=== PATIENT | female | born 1985 | race Caucasian/White ===

== ENCOUNTER 2016-12-01 21:38 | Emergency (ER) | payer BC ==
[2016-12-01 21:53] VITALS: BP 109/67
[2016-12-01] MEDS ORDERED: Phenazopyridine 95 MG Tab PO ONE (22:15)
[2016-12-01] MEDS ORDERED: Sulfamethoxazole/Trimethoprim 800-160 MG Tab PO ONE (22:15)
--- NOTE | 2016-12-01 22:21 | EDM.PDOC ---
ED HPI GENERAL MEDICAL PROBLEM - General Chief Complaint: Genitourinary Problem Stated Complaint: UTI [id number] Time Seen by Provider: 12/01/16 22:16 Source of Information: Reports: Patient History Limitations: Reports: No Limitations - History of Present Illness INITIAL COMMENTS - FREE TEXT/NARRATIVE: worsening of dysuria, urgency, denies back pain, did have fever few days ago. 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 [No Known Home Meds] 08/27/15 [History] Past Medical History - Past Health History Medical/Surgical History: Denies Medical/Surgical History - Past Surgical History HEENT Surgical History: Reports: Tonsillectomy GI Surgical History: Reports: Appendectomy, Colonoscopy, Other (See Below) Other GI Surgeries/Procedures: Exlap Female Surgical History: Reports: Other (See Below) Social & Family History - Family History Family Medical History: Noncontributory - Tobacco Use Smoking Status *Q: Never Smoker Second Hand Smoke Exposure: No - Caffeine Use Caffeine Use: Reports: Coffee, Soda - Alcohol Use Date of Last Drink: 11/10/16 - Recreational Drug Use Recreational Drug Use: No - Living Situation & Occupation Living situation: Reports: , with Spouse Occupation: Employed ED ROS GENERAL - Review of Systems Review Of Systems: ROS reveals no pertinent complaints other than HPI. ED EXAM, RENAL/ - Physical Exam Exam: See Below Exam Limited By: No Limitations General Appearance: Alert, WD/WN, Mild Distress, Other (discomfort) Ears: Hearing Grossly Normal Throat/Mouth: Normal Voice, No Airway Compromise Head: Atraumatic Neck: Non-Tender, Full Range of Motion Respiratory/Chest: No Respiratory Distress Cardiovascular: Regular Rate, Rhythm GI/Abdominal: Soft, Non-Tender Back Exam: No: CVA Tenderness (L), CVA Tenderness (R) Neurological: Alert, Oriented, Normal Cognition, Normal Gait, No Motor/Sensory Deficits Psychiatric: Normal Affect, Normal Mood Skin Exam: Warm, Dry Lymphatic: No Adenopathy Course - Vital Signs Last Recorded V/S: Last Vital Signs Temp 36.3 C 12/01/16 21:41 Pulse 96 12/01/16 21:41 Resp 14 12/01/16 21:41 BP 109/67 12/01/16 21:41 Pulse Ox 94 L 12/01/16 21:41 - Orders/Labs/Meds Orders: Active Orders 24 hr Category Date Time Status Phenazopyridine [Urinary Pain Relief] Med 12/01/16 22:15 Once 95 mg PO ONETIME ONE Sulfamethoxazole/Trimethoprim [Septra DS] Med 12/01/16 22:15 Once 1 tab PO ONETIME ONE Labs: Laboratory Tests 12/01/16 12/01/16 Range/Units 21:34 21:34 Urine Color Other (YELLOW) Urine Appearance Cloudy (CLEAR) Urine pH 7.0 (5.0-9.0) Ur Specific [place] >= 1.030 (1.005-1.030) Urine Protein >=300 H (NEGATIVE) Urine Glucose (UA) Negative (NEGATIVE) Urine Ketones 40 H (NEGATIVE) Urine Occult Blood Large H (NEGATIVE) Urine Nitrite Negative (NEGATIVE) Urine Bilirubin Negative (NEGATIVE) Urine Urobilinogen 0.2 (0.2-1.0) mg/dL Ur Leukocyte Esterase Small H (NEGATIVE) Urine RBC Semi-packed H /HPF Urine WBC 20-30 H (0-5/HPF) /HPF Ur Epithelial Cells Moderate H /HPF Urine Bacteria Moderate H (0-FEW/HPF) /HPF Urine Mucus Moderate H /LPF Urine HCG, Qual Negative - Re-Assessments/Exams Free Text/Narrative Re-Assessment/Exam: 12/01/16 22:19 results discussed with Pt. Departure - Departure Time of Disposition: 22:19 Disposition: Home, Self-Care 01 Condition: Good Clinical Impression: UTI, Urinary tract infectious disease - Discharge Information Instructions: Urinary Tract Infection, Adult, [id number] Forms: ED Department Discharge Additional Instructions: 1) drink lots of liquids 2) follow up at clinic or return if has fever and back pain rx given; bactrim DS bid x 20 pyridium 100mg tid prn x 12 - My Orders Last 24 Hours: My Active Orders 12/01/16 22:15 Phenazopyridine [Urinary Pain Relief] 95 mg PO ONETIME ONE Sulfamethoxazole/Trimethoprim [Septra DS] 1 tab PO ONETIME ONE - Assessment/Plan Last 24 Hours: My Active Orders 12/01/16 22:15 Phenazopyridine [Urinary Pain Relief] 95 mg PO ONETIME ONE Sulfamethoxazole/Trimethoprim [Septra DS] 1 tab PO ONETIME ONE
== END 2016-12-01 22:42 | disposition home or self-care (01) ==
LOC: DL.ED 21:38
DX: N39.0 Urinary tract infection, site not specified (principal); Z98.890 Other specified postprocedural states; Z90.49 Acquired absence of other specified parts of digestive tract
CPT/HCPCS: 81001; 81025; 99283; A9270

== ENCOUNTER 2016-12-03 21:54 | Emergency (ER) | payer BC ==
[2016-12-03] MEDS ORDERED: Sodium Chloride 0.9% 1,000 ML IV ONE (22:29)
[2016-12-03] MEDS ORDERED: Morphine 2 MG/ML Syringe IVPUSH ONE (22:29)
[2016-12-03] MEDS ORDERED: Ondansetron 4 MG/2 ML SDV IV ONE (22:29)
--- NOTE | 2016-12-03 22:32 | EDM.PDOC ---
ED HPI GENERAL MEDICAL PROBLEM - General Chief Complaint: Abdominal Pain Stated Complaint: POSSIBLE KIDNEY STONES Time Seen by Provider: 12/03/16 22:30 Source of Information: Reports: Patient History Limitations: Reports: No Limitations - History of Present Illness INITIAL COMMENTS - FREE TEXT/NARRATIVE: states was playing volley ball suddenly started low abd' pain with nausea. h/o ovarian cyste. been Dx with UTI few days ago. Lower Abdominal Pain Score (Numeric/FACES): 9 - Related Data Allergies Allergy/AdvReac Type Severity Reaction Status Date / Time No Known Allergies Allergy Verified 12/03/16 23:46 Home Meds: Home Meds Phenazopyridine HCl [Pyridium] 200 mg PO TID 12/03/16 [History] Sulfamethoxazole/Trimethoprim [Bactrim Ds Tablet] 1 tab PO BID 12/03/16 [History ] Past Medical History - Past Health History Medical/Surgical History: Denies Medical/Surgical History - Past Surgical History HEENT Surgical History: Reports: Tonsillectomy GI Surgical History: Reports: Appendectomy, Colonoscopy, Other (See Below) Other GI Surgeries/Procedures: Exlap Female Surgical History: Reports: Other (See Below) Social & Family History - Family History Family Medical History: Noncontributory - Tobacco Use Smoking Status *Q: Never Smoker Second Hand Smoke Exposure: No - Caffeine Use Caffeine Use: Reports: Coffee, Soda - Recreational Drug Use Recreational Drug Use: No - Living Situation & Occupation Living situation: Reports: , with Spouse Occupation: Employed ED ROS GENERAL - Review of Systems Review Of Systems: ROS reveals no pertinent complaints other than HPI. ED EXAM, GI/ABD - Physical Exam Exam: See Below Exam Limited By: No Limitations General Appearance: Alert, WD/WN, Mild Distress, Other (crying) Ears: Hearing Grossly Normal Throat/Mouth: Normal Voice, No Airway Compromise Head: Atraumatic Neck: Non-Tender, Full Range of Motion Respiratory/Chest: No Respiratory Distress Cardiovascular: Regular Rate, Rhythm GI/Abdominal: Hyperactive Bowel Sounds, Tenderness, Other (superpubic area). No : Guarding, Rebound, Rigidity Neurological: Alert, Oriented, Normal Cognition, Normal Gait, No Motor/Sensory Deficits Psychiatric: Tearful Skin Exam: Warm, Dry Lymphatic: No Adenopathy Course - Vital Signs Last Recorded V/S: Last Vital Signs Temp 36.4 C 12/03/16 22:26 Pulse 99 12/03/16 23:07 Resp 16 12/03/16 23:07 BP 105/68 12/03/16 23:07 Pulse Ox 86 L 12/03/16 23:07 - Orders/Labs/Meds Orders: Active Orders 24 hr Category Date Time Status Sodium Chloride 0.9% [Normal Saline] 1,000 ml Med 12/03/16 22:29 Active IV .BOLUS Medication Orders Sodium Chloride (Normal Saline) 1,000 mls @ 500 mls/hr IV .BOLUS ONE Stop: 12/04/16 00:28 Last Admin: 12/03/16 22:35 Dose: 500 mls/hr Labs: Laboratory Tests 12/03/16 12/03/16 12/03/16 Range/Units 22:13 22:13 22:21 WBC 9.6 (5.0-10.0) 10^3/uL RBC 4.36 (4.2-5.4) 10^6/uL Hgb 12.9 (12.0-16.0) g/dL Hct 38.5 (37.0-47.0) % MCV 88.3 (80-100) fL MCH 29.6 (27.0-34.0) pg MCHC 33.5 (33.0-35.0) g/dL Plt Count 191 (150-450) 10^3/uL Neut % (Auto) 53.0 (42.2-75.2) % Lymph % (Auto) 35.6 (20.5-50.1) % [place] % (Auto) 10.2 H (2-8) % Eos % (Auto) 1.0 (1.0-3.0) % Baso % (Auto) 0.2 (0.0-1.0) % Sodium (135-145) mmol/L Potassium (3.6-5.0) mmol/L Chloride (101-111) mmol/L Carbon Dioxide (21.0-31.0) mmol/L Anion Gap BUN (7-18) mg/dL Creatinine (0.6-1.3) mg/dL Est Cr Clr Drug Dosing mL/min Estimated GFR (MDRD) BUN/Creatinine Ratio Glucose (74-105) mg/dL Calcium (8.4-10.2) mg/dl Total Bilirubin (0.2-1.0) mg/dL AST (10-42) IU/L ALT (10-60) IU/L Alkaline Phosphatase (42-121) IU/L Total Protein (6.7-8.2) g/dl Albumin (3.2-5.5) g/dl Globulin Albumin/Globulin Ratio Urine Color [place] (YELLOW) Urine Appearance Cloudy (CLEAR) Urine pH 6.0 (5.0-9.0) Ur Specific [place] >= 1.030 (1.005-1.030) Urine Protein Trace H (NEGATIVE) Urine Glucose (UA) Negative (NEGATIVE) Urine Ketones Trace H (NEGATIVE) Urine Occult Blood Negative (NEGATIVE) Urine Nitrite Positive H (NEGATIVE) Urine Bilirubin Negative (NEGATIVE) Urine Urobilinogen 1.0 (0.2-1.0) mg/dL Ur Leukocyte Esterase Negative (NEGATIVE) Urine RBC 0-5 /HPF Urine WBC 5-10 H (0-5/HPF) /HPF Ur Epithelial Cells Few /HPF Urine Bacteria Few (0-FEW/HPF) /HPF Urine Mucus Many H /LPF Urine HCG, Qual Negative 12/03/16 Range/Units 22:21 WBC (5.0-10.0) 10^3/uL RBC (4.2-5.4) 10^6/uL Hgb (12.0-16.0) g/dL Hct (37.0-47.0) % MCV (80-100) fL MCH (27.0-34.0) pg MCHC (33.0-35.0) g/dL Plt Count (150-450) 10^3/uL Neut % (Auto) (42.2-75.2) % Lymph % (Auto) (20.5-50.1) % [place] % (Auto) (2-8) % Eos % (Auto) (1.0-3.0) % Baso % (Auto) (0.0-1.0) % Sodium 140 (135-145) mmol/L Potassium 4.0 (3.6-5.0) mmol/L Chloride 104 (101-111) mmol/L Carbon Dioxide 25.0 (21.0-31.0) mmol/L Anion Gap 15.0 BUN 15 (7-18) mg/dL Creatinine 1.0 (0.6-1.3) mg/dL Est Cr Clr Drug Dosing 65.65 mL/min Estimated GFR (MDRD) > 60 BUN/Creatinine Ratio 15.00 Glucose 85 (74-105) mg/dL Calcium 9.4 (8.4-10.2) mg/dl Total Bilirubin 0.4 (0.2-1.0) mg/dL AST 22 (10-42) IU/L ALT 17 (10-60) IU/L Alkaline Phosphatase 77 (42-121) IU/L Total Protein 7.3 (6.7-8.2) g/dl Albumin 4.2 (3.2-5.5) g/dl Globulin 3.1 Albumin/Globulin Ratio 1.35 Urine Color (YELLOW) Urine Appearance (CLEAR) Urine pH (5.0-9.0) Ur Specific [place] (1.005-1.030) Urine Protein (NEGATIVE) Urine Glucose (UA) (NEGATIVE) Urine Ketones (NEGATIVE) Urine Occult Blood (NEGATIVE) Urine Nitrite (NEGATIVE) Urine Bilirubin (NEGATIVE) Urine Urobilinogen (0.2-1.0) mg/dL Ur Leukocyte Esterase (NEGATIVE) Urine RBC /HPF Urine WBC (0-5/HPF) /HPF Ur Epithelial Cells /HPF Urine Bacteria (0-FEW/HPF) /HPF Urine Mucus /LPF Urine HCG, Qual Meds: Medications Generic Name Dose Route Start Last Admin Trade Name Freq PRN Reason Stop Dose Admin Sodium Chloride 1,000 mls @ 500 mls/hr 12/03/16 22:29 12/03/16 22:35 Normal Saline IV 12/04/16 00:28 500 mls/hr .BOLUS ONE Administration Discontinued Medications Generic Name Dose Route Start Last Admin Trade Name Freq PRN Reason Stop Dose Admin Hydromorphone HCl 1 mg 12/03/16 22:57 12/03/16 23:03 Dilaudid IVPUSH 12/03/16 22:58 1 mg ONETIME ONE Administration Morphine Sulfate 2 mg 12/03/16 22:29 12/03/16 22:37 Morphine IVPUSH 12/03/16 22:30 2 mg ONETIME ONE Administration Ondansetron HCl 4 mg 12/03/16 22:29 12/03/16 22:36 Zofran IV 12/03/16 22:30 4 mg ONETIME ONE Administration Pantoprazole Sodium 40 mg 12/03/16 23:18 12/03/16 23:23 Protonix Iv IVPUSH 12/03/16 23:19 40 mg ONETIME ONE Administration - Re-Assessments/Exams Free Text/Narrative Re-Assessment/Exam: 12/03/16 22:58 re-exam; now c/o epigastric area pain. 12/04/16 00:03 results discussed with Pt who is feeling good presently Departure - Departure Time of Disposition: 00:03 Disposition: Home, Self-Care 01 Condition: Good Clinical Impression: Ovarian cyst Abdominal pain Qualifiers: Abdominal location: generalized Qualified Code(s): R10.84 - Generalized abdominal pain - Discharge Information Instructions: Abdominal Pain, Adult, [id number] Forms: ED Department Discharge Additional Instructions: 1) rest 2) see family doctor for GASTROSCOPY & COLONOSCOPY - My Orders Last 24 Hours: My Active Orders 12/03/16 22:29 Sodium Chloride 0.9% [Normal Saline] 1,000 ml IV .BOLUS - Assessment/Plan Last 24 Hours: My Active Orders 12/03/16 22:29 Sodium Chloride 0.9% [Normal Saline] 1,000 ml IV .BOLUS
[2016-12-03 22:47] LABS: CHLORIDE,CL 104 mmol/L (101-111); SODIUM,NA 140 mmol/L (135-145)
[2016-12-03] MEDS ORDERED: HYDROmorphone 1 MG/ML Syringe IVPUSH ONE (22:57)
[2016-12-03 23:07] VITALS: BP 105/68
[2016-12-03] MEDS ORDERED: Pantoprazole 40 MG Vial IVPUSH ONE (23:18)
[2016-12-04] MEDS ORDERED: Acetaminophen/HYDROcodone 325-10 MG Tab PO ONE (00:02)
[2016-12-04] MEDS ORDERED: Acetaminophen/HYDROcodone 325-10 MG Tab ONE (00:02)
== END 2016-12-04 00:21 | disposition home or self-care (01) ==
LOC: DL.ED 21:54
DX: N83.202 Unspecified ovarian cyst, left side (principal); N83.201 Unspecified ovarian cyst, right side
CPT/HCPCS: 36415; 74176; 80053; 81001; 81025; 85025; 96365; 96366; 96375; 99284; C9113; J1170; J2270; J2405; J7030; A9270-GY

== ENCOUNTER 2017-04-01 11:39 | Emergency (ER) | payer BC ==
[2017-04-01 11:51] VITALS: BP 101/64
[2017-04-01] MEDS ORDERED: Penicillin G Benzathine/Procaine 600-600 1.2 Millunits/2 ML Syringe IM ONE (12:04)
[2017-04-01] MEDS ORDERED: GI Cocktail Oral Solution 30 ML PO ONE (12:04)
--- NOTE | 2017-04-01 12:09 | EDM.PDOC ---
ED HPI GENERAL MEDICAL PROBLEM - General Chief Complaint: ENT Problem Stated Complaint: [id number] STREPT THROAT Time Seen by Provider: 04/01/17 12:04 Source of Information: Reports: Patient History Limitations: Reports: No Limitations - History of Present Illness INITIAL COMMENTS - FREE TEXT/NARRATIVE: 31 yo white female c/o sore throat w/ bodyaches since Onset Date: 03/29/17 Onset Time: 12:00 Duration: Day(s): Location: Reports: Face Quality: Reports: Ache Severity: Moderate Improves with: Reports: None Worsens with: Reports: None Context: Reports: Sick Contact Associated Symptoms: Reports: No Other Symptoms Throat Pain Score (Numeric/FACES): 9 - Related Data Allergies Allergy/AdvReac Type Severity Reaction Status Date / Time No Known Allergies Allergy Verified 12/03/16 23:46 Home Meds: Home Meds . 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 - Past Surgical History HEENT Surgical History: Reports: Tonsillectomy GI Surgical History: Reports: Appendectomy, Colonoscopy, Other (See Below) Other GI Surgeries/Procedures: Exlap Female Surgical History: Reports: Other (See Below) Social & Family History - Family History Family Medical History: Noncontributory - Tobacco Use Smoking Status *Q: Never Smoker Second Hand Smoke Exposure: No - Caffeine Use Caffeine Use: Reports: Coffee, Soda - Recreational Drug Use Recreational Drug Use: No - Living Situation & Occupation Living situation: Reports: , with Spouse Occupation: Employed ED ROS ENT - Review of Systems Review Of Systems: See Below Constitutional: Reports: No Symptoms HEENT: Reports: Throat Pain Respiratory: Reports: No Symptoms Cardiovascular: Reports: No Symptoms Endocrine: Reports: No Symptoms GI/Abdominal: Reports: No Symptoms : Reports: No Symptoms Musculoskeletal: Reports: No Symptoms Skin: Reports: No Symptoms Neurological: Reports: No Symptoms Psychiatric: Reports: No Symptoms Hematologic/Lymphatic: Reports: No Symptoms Immunologic: Reports: No Symptoms ED EXAM, ENT - Physical Exam Exam: See Below Exam Limited By: No Limitations General Appearance: Alert, No Apparent Distress Eye Exam: Bilateral Eye: PERRL Ears: Normal External Exam, Normal Canal, Normal TMs Nose: Normal Inspection, Normal Mucousa Mouth/Throat: Normal Inspection, Pharyngeal Erythema, Throat Pain Head: Atraumatic Neck: Normal Inspection, Lymphadenopathy (L), Lymphadenopathy (R) Respiratory/Chest: No Respiratory Distress, Lungs Clear Cardiovascular: Normal Peripheral Pulses, Regular Rate, Rhythm GI/Abdominal: Normal Bowel Sounds, Soft Back: Normal Inspection Extremities: Normal Inspection, Normal Range of Motion Neurological: Alert, Oriented, CN II-XII Intact Psychiatric: Normal Affect Skin: Warm, Intact Lymphatic: No Adenopathy Course - Vital Signs Last Recorded V/S: Last Vital Signs Temp 36.6 C 04/01/17 11:50 Pulse 102 H 04/01/17 11:50 Resp 16 04/01/17 11:50 BP 101/64 04/01/17 11:50 Pulse Ox 100 04/01/17 11:50 Departure - Departure Time of Disposition: 12:07 Disposition: Home, Self-Care 01 Condition: Good Clinical Impression: Otalgia of both ears Pharyngitis Qualifiers: Pharyngitis/tonsillitis etiology: streptococcus Qualified Code(s): J02.0 - Streptococcal pharyngitis - Discharge Information Additional Instructions: Rest Increase intake of Fluids ( Water / Juice) Use Chloraseptic [place] ( otc) Take Tylenol ES 500mg Q 4-6 hours as needed for bodyaches F/U w/ PCP
== END 2017-04-01 12:16 | disposition home or self-care (01) ==
LOC: DL.ED 11:39
DX: J02.0 Streptococcal pharyngitis (principal); H92.03 Otalgia, bilateral
CPT/HCPCS: 96372; 99282; A9270; J0558

== ENCOUNTER 2018-09-03 05:31 | Emergency (ER) | payer BC ==
--- NOTE | 2018-09-03 05:45 | EDM.PDOC ---
<Oksana Asher - Last Filed: 09/03/18 07:01> ED HPI GENERAL MEDICAL PROBLEM - General Chief Complaint: General Stated Complaint: BAD BODY ACHES, [id number] Time Seen by Provider: 09/03/18 05:44 Source of Information: Reports: Patient, RN, RN Notes Reviewed History Limitations: Reports: No Limitations - History of Present Illness INITIAL COMMENTS - FREE TEXT/NARRATIVE: Pt to ER with c/o severe body aches. Patient states the end of June she was dx by one provider with shingles, and another provider told her that she did not have shingles. She states she has been having testing and doctoring ever since. She was dx by a provider in [place] with idiopathic neuropathy. Patient states she has been dealing with that pain for the past several weeks. Patient states last night she began having a lot of body aches in the joints. She states by 329 the pain was unbearable. No more pain in one certain place, she states all of her joints are very painful. Patient states she has chills and sweats frequently, but has been having that since June. Patient admits to nausea, and did vomit/dry heave after taking pain medication yesterday. Denies cough, sore throat, urinary symptoms. Patient moaning out in pain. Onset: Gradual Duration: Constant Location: Reports: Generalized Quality: Reports: Ache Severity: Severe Improves with: Reports: None Worsens with: Reports: None Associated Symptoms: Reports: Fever/Chills, Nausea/Vomiting Generalized Pain Score (Numeric/FACES): 10 - Related Data Allergies Allergy/AdvReac Type Severity Reaction Status Date / Time No Known Allergies Allergy Verified 09/03/18 05:42 Home Meds: Home Meds . [No Known Home Meds] 04/01/17 [History] Past Medical History - Past Health History Medical/Surgical History: Denies Medical/Surgical History Respiratory History: Reports: Pneumonia, Recurrent Gastrointestinal History: Reports: GERD MEDICAL SECRETARY History: Reports: Other (See Below) Other MEDICAL SECRETARY 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 - Past Surgical History HEENT Surgical History: Reports: Tonsillectomy GI Surgical History: Reports: Appendectomy, Colonoscopy, Other (See Below) Other GI Surgeries/Procedures: Exlap Female Surgical History: Reports: Other (See Below) Social & Family History - Family History Family Medical History: Noncontributory - Tobacco Use Smoking Status *Q: Never Smoker - Caffeine Use Caffeine Use: Reports: Coffee - Recreational Drug Use Recreational Drug Use: No - Living Situation & Occupation Living situation: Reports: , with Spouse Occupation: Employed ED ROS GENERAL - Review of Systems Review Of Systems: ROS reveals no pertinent complaints other than HPI. ED EXAM, GENERAL - Physical Exam Exam: See Below Exam Limited By: No Limitations General Appearance: Alert, WD/WN, Moderate Distress Eye Exam: Bilateral Eye: EOMI, Normal Inspection Ears: Normal External Exam, Hearing Grossly Normal Nose: Normal Inspection Throat/Mouth: Normal Inspection, Normal Voice, No Airway Compromise Head: Atraumatic, Normocephalic Neck: Normal Inspection, Supple, Non-Tender, Full Range of Motion Respiratory/Chest: No Respiratory Distress, Lungs Clear, Normal Breath Sounds, No Accessory Muscle Use, Chest Non-Tender Cardiovascular: Normal Peripheral Pulses, Regular Rate, Rhythm, No Edema, No Gallop, No JVD, No Murmur, No Rub Peripheral Pulses: 2+: Radial (L), Radial (R) GI/Abdominal: Normal Bowel Sounds, Soft, Non-Tender (Female) Exam: Deferred Rectal (Female) Exam: Deferred Back Exam: Normal Inspection, Decreased Range of Motion Extremities: Normal Inspection, No Pedal Edema, Normal Capillary Refill, Arm Pain, Leg Pain, Limited Range of Motion. No: Joint Swelling Neurological: Alert, Oriented, CN II-XII Intact, Normal Cognition Psychiatric: Anxious, Tearful Skin Exam: Warm, Dry, Intact, Normal Color, No Rash Lymphatic: No Adenopathy Course - Vital Signs Last Recorded V/S: Last Vital Signs Temp 37.2 C 09/03/18 06:52 Pulse 88 09/03/18 07:13 Resp 16 09/03/18 07:13 BP 97/62 09/03/18 07:13 Pulse Ox 97 09/03/18 07:13 - Orders/Labs/Meds Orders: Active Orders 24 hr Category Date Time Status Peripheral IV Care [RC] . DIRECTED Care 09/03/18 05:54 Active Sodium Chloride 0.9% [Saline Flush] Med 09/03/18 05:53 Active 10 ml FLUSH ASDIRECTED PRN Peripheral IV Insertion Adult [OM.PC] Stat Oth 09/03/18 05:52 Ordered Medication Orders Sodium Chloride (Saline Flush) 10 ml FLUSH ASDIRECTED PRN PRN Reason: Keep Vein Open Last Admin: 09/03/18 05:57 Dose: 10 ml Labs: Laboratory Tests 09/03/18 09/03/18 09/03/18 Range/Units 05:44 05:44 06:27 WBC 13.1 H (5.0-10.0) 10^3/uL RBC 4.96 (4.2-5.4) 10^6/uL Hgb 14.4 (12.0-16.0) g/dL Hct 42.8 (37.0-47.0) % MCV 86.3 (80-100) fL MCH 29.0 (27.0-34.0) pg MCHC 33.6 (33.0-35.0) g/dL Plt Count 234 (150-450) 10^3/uL Neut % (Auto) 87.5 H (42.2-75.2) % Lymph % (Auto) 6.6 L (20.5-50.1) % [place] % (Auto) 5.3 (2-8) % Eos % (Auto) 0.4 L (1.0-3.0) % Baso % (Auto) 0.2 (0.0-1.0) % Sodium 134 L (135-145) mmol/L Potassium 3.6 (3.6-5.0) mmol/L Chloride 101 (101-111) mmol/L Carbon Dioxide 21.0 (21.0-31.0) mmol/L Anion Gap 15.6 BUN 14 (7-18) mg/dL Creatinine 0.7 (0.6-1.3) mg/dL Est Cr Clr Drug Dosing 87.87 mL/min Estimated GFR (MDRD) > 60 BUN/Creatinine Ratio 20.00 Glucose 93 (74-105) mg/dL Calcium 8.9 (8.4-10.2) mg/dl Total Bilirubin 0.9 (0.2-1.0) mg/dL AST 35 (10-42) IU/L ALT 27 (10-60) IU/L Alkaline Phosphatase 80 (42-121) IU/L Total Protein 7.6 (6.7-8.2) g/dl Albumin 4.0 (3.2-5.5) g/dl Globulin 3.6 Albumin/Globulin Ratio 1.11 Urine Color (YELLOW) Urine Appearance (CLEAR) Urine pH (5.0-9.0) Ur Specific [place] (1.005-1.030) Urine Protein (NEGATIVE) Urine Glucose (UA) (NEGATIVE) Urine Ketones (NEGATIVE) Urine Occult Blood (NEGATIVE) Urine Nitrite (NEGATIVE) Urine Bilirubin (NEGATIVE) Urine Urobilinogen (0.2-1.0) mg/dL Ur Leukocyte Esterase (NEGATIVE) Urine HCG, Qual Negative Urine Opiates Screen (NEGATIVE) Ur Oxycodone Screen (NEGATIVE) Urine Methadone Screen (NEGATIVE) Ur Barbiturates Screen (NEGATIVE) U Tricyclic Antidepress (NEGATIVE) Ur Phencyclidine Scrn (NEGATIVE) Ur Amphetamine Screen (NEGATIVE) U Methamphetamines Scrn (NEGATIVE) Urine MDMA Screen (NEGATIVE) U Benzodiazepines Scrn (NEGATIVE) Urine Cocaine Screen (NEGATIVE) U Marijuana (THC) Screen (NEGATIVE) 09/03/18 09/03/18 Range/Units 06:27 06:27 WBC (5.0-10.0) 10^3/uL RBC (4.2-5.4) 10^6/uL Hgb (12.0-16.0) g/dL Hct (37.0-47.0) % MCV (80-100) fL MCH (27.0-34.0) pg MCHC (33.0-35.0) g/dL Plt Count (150-450) 10^3/uL Neut % (Auto) (42.2-75.2) % Lymph % (Auto) (20.5-50.1) % [place] % (Auto) (2-8) % Eos % (Auto) (1.0-3.0) % Baso % (Auto) (0.0-1.0) % Sodium (135-145) mmol/L Potassium (3.6-5.0) mmol/L Chloride (101-111) mmol/L Carbon Dioxide (21.0-31.0) mmol/L Anion Gap BUN (7-18) mg/dL Creatinine (0.6-1.3) mg/dL Est Cr Clr Drug Dosing mL/min Estimated GFR (MDRD) BUN/Creatinine Ratio Glucose (74-105) mg/dL Calcium (8.4-10.2) mg/dl Total Bilirubin (0.2-1.0) mg/dL AST (10-42) IU/L ALT (10-60) IU/L Alkaline Phosphatase (42-121) IU/L Total Protein (6.7-8.2) g/dl Albumin (3.2-5.5) g/dl Globulin Albumin/Globulin Ratio Urine Color Dark yellow (YELLOW) Urine Appearance Slightly cloudy (CLEAR) Urine pH 6.5 (5.0-9.0) Ur Specific [place] 1.025 (1.005-1.030) Urine Protein Negative (NEGATIVE) Urine Glucose (UA) Negative (NEGATIVE) Urine Ketones 40 H (NEGATIVE) Urine Occult Blood Negative (NEGATIVE) Urine Nitrite Negative (NEGATIVE) Urine Bilirubin Negative (NEGATIVE) Urine Urobilinogen 0.2 (0.2-1.0) mg/dL Ur Leukocyte Esterase Negative (NEGATIVE) Urine HCG, Qual Urine Opiates Screen Negative (NEGATIVE) Ur Oxycodone Screen Positive H (NEGATIVE) Urine Methadone Screen Negative (NEGATIVE) Ur Barbiturates Screen Negative (NEGATIVE) U Tricyclic Antidepress Negative (NEGATIVE) Ur Phencyclidine Scrn Negative (NEGATIVE) Ur Amphetamine Screen Negative (NEGATIVE) U Methamphetamines Scrn Positive H (NEGATIVE) Urine MDMA Screen Negative (NEGATIVE) U Benzodiazepines Scrn Negative (NEGATIVE) Urine Cocaine Screen Negative (NEGATIVE) U Marijuana (THC) Screen Negative (NEGATIVE) Influenza A & B: Negative Meds: Medications Generic Name Dose Route Start Last Admin Trade Name Freq PRN Reason Stop Dose Admin Sodium Chloride 10 ml 09/03/18 05:53 09/03/18 05:57 Saline Flush FLUSH 10 ml ASDIRECTED PRN Administration Keep Vein Open Discontinued Medications Generic Name Dose Route Start Last Admin Trade Name Freq PRN Reason Stop Dose Admin Hydromorphone HCl 1 mg 09/03/18 06:41 09/03/18 06:49 Dilaudid IVPUSH 09/03/18 06:42 1 mg ONETIME ONE Administration Sodium Chloride 1,000 mls @ 999 mls/hr 09/03/18 05:53 09/03/18 06:03 Normal Saline IV 09/03/18 06:53 999 mls/hr .BOLUS ONE Administration Ketorolac Tromethamine 30 mg 09/03/18 05:53 09/03/18 06:02 Toradol IVPUSH 09/03/18 05:54 30 mg ONETIME ONE Administration Methylprednisolone Sodium Succinate 125 mg 09/03/18 07:01 09/03/18 07:12 Solu-Medrol IVPUSH 09/03/18 07:02 125 mg ONETIME ONE Administration Metoclopramide HCl 10 mg 09/03/18 07:29 09/03/18 07:39 Reglan IVPUSH 09/03/18 07:30 10 mg ONETIME ONE Administration Ondansetron HCl 4 mg 09/03/18 05:53 09/03/18 06:02 Zofran IV 09/03/18 05:54 4 mg ONETIME ONE Administration Departure - Departure Disposition: Home, Self-Care 01 Clinical Impression: Generalized pain, Neuropathy - Discharge Information Instructions: Neuropathic Pain, Pain Without a Known Cause Forms: ED Department Discharge Care Plan Goals: The patient was advised of the examination and lab results during the visit. The patient was given medications for nausea and pain. The patient was given an injection of SoluMedrol (steroid) while in the ED. The patient was discharged with a script for Prednisone (20 mg) #10 to take 2 by mouth daily and a script for Zofran (4 mg) #20 to take 1 by mouth every 6 hours as needed for nausea. If the patient has any additional symptoms or concerns, the patient should either return to the emergency department or visit her primary care facility. <Wu Sutton - Last Filed: 09/03/18 07:41> Departure - Departure Time of Disposition: 07:30 Condition: Fair - Discharge Information *PRESCRIPTION DRUG MONITORING PROGRAM REVIEWED*: Not Applicable *COPY OF PRESCRIPTION DRUG MONITORING REPORT IN PATIENT AMINTA: Not Applicable
[2018-09-03] MEDS ORDERED: Sodium Chloride 0.9% 10 ML Syringe FLUSH PRN (05:53)
[2018-09-03] MEDS ORDERED: Ondansetron 4 MG/2 ML SDV IV ONE (05:53)
[2018-09-03] MEDS ORDERED: Ketorolac 30 MG/ML SDV IVPUSH ONE (05:53)
[2018-09-03] MEDS ORDERED: Sodium Chloride 0.9% 1,000 ML IV ONE (05:53)
[2018-09-03 06:11] LABS: ANION GAP 15.6; CHLORIDE,CL 101 mmol/L (101-111); SODIUM,NA 134 mmol/L (135-145)
[2018-09-03] MEDS ORDERED: HYDROmorphone 1 MG/ML Syringe IVPUSH ONE (06:41)
[2018-09-03] MEDS ORDERED: methylPREDNISolone Sodium Succinate 125 MG/2 ML SDV IVPUSH ONE (07:01)
[2018-09-03 07:14] VITALS: BP 97/62
[2018-09-03] MEDS ORDERED: Metoclopramide 10 MG/2 ML SDV IVPUSH ONE (07:29)
== END 2018-09-03 08:00 | disposition home or self-care (01) ==
LOC: DL.ED 05:31
DX: G62.9 Polyneuropathy, unspecified (principal); R52 Pain, unspecified; Z90.49 Acquired absence of other specified parts of digestive tract; Z98.890 Other specified postprocedural states; Z87.01 Personal history of pneumonia (recurrent)
CPT/HCPCS: 36415; 80053; 80305; 81003; 81025; 85025; 87804; 96361; 96374; 96375; 99283; J1170; J1885; J2405; J2765; J2930; J7030

== ENCOUNTER 2019-06-19 17:06 | Emergency (ER) | payer BC ==
[2019-06-19] MEDS ORDERED: Acetaminophen/oxyCODONE 325-5 MG Tab PO ONE (17:07)
[2019-06-19] MEDS ORDERED: Sodium Chloride 0.9% 10 ML Syringe FLUSH PRN (17:31)
[2019-06-19] MEDS ORDERED: Ondansetron 4 MG/2 ML SDV IV ONE (17:32)
[2019-06-19] MEDS ORDERED: Sodium Chloride 0.9% 1,000 ML IV ONE (17:32)
[2019-06-19] MEDS ORDERED: Ketorolac 30 MG/ML SDV IVPUSH ONE (17:32)
[2019-06-19] MEDS ORDERED: HYDROmorphone 1 MG/ML Syringe IVPUSH ONE ×4 (17:33→21:56)
[2019-06-19 17:56] VITALS: BP 111/73; PULSE 100
[2019-06-19 18:15] LABS: ANION GAP 13.3; CHLORIDE,CL 104 mmol/L (101-111); SODIUM,NA 136 mmol/L (135-145)
[2019-06-19] MEDS ORDERED: methylPREDNISolone Sodium Succinate 125 MG/2 ML SDV IVPUSH ONE (18:39)
--- NOTE | 2019-06-19 19:08 | EDM.PDOC ---
Scribed by Inge Little 06/19/19 1908 for Quintin Carrasquillo MD <Quintin Carrasquillo - Last Filed: 06/19/19 19:08> ED HPI GENERAL MEDICAL PROBLEM - General Chief Complaint: General Stated Complaint: AMBULANCE Time Seen by Provider: 06/19/19 17:25 Source of Information: Reports: Patient, Provider, RN, RN Notes Reviewed History Limitations: Reports: No Limitations - History of Present Illness INITIAL COMMENTS - FREE TEXT/NARRATIVE: Patient presents to ER to with . States she was in the walk n clinic last week for cough and head cold. Influenza was negative. This morning at 04:30 she awoke with vomiting and nausea. Has vomited x3 today. Went to the clinic and was tested for influenza again and was negative. Complains of pain throughout entire body. Anxious. Moaning with pain. Taking shallow short breaths. Needs 2 people to help her out of the wheelchair onto the cot. Patient is very anxious. Onset: Gradual Duration: Getting Worse Location: Reports: Generalized Quality: Reports: Ache Severity: Moderate Improves with: Reports: None Worsens with: Reports: None Associated Symptoms: Reports: No Other Symptoms Generalized Pain Score (Numeric/FACES): 10 - Related Data Allergies Allergy/AdvReac Type Severity Reaction Status Date / Time No Known Allergies Allergy Verified 06/19/19 17:25 Home Meds: Home Meds Pregabalin [Lyrica] 150 mg PO DAILY 06/19/19 [History] Pregabalin [Lyrica] 300 mg PO DAILY 06/19/19 [History] Past Medical History - Past Health History Medical/Surgical History: Denies Medical/Surgical History Respiratory History: Reports: Pneumonia, Recurrent Gastrointestinal History: Reports: GERD 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 Neurological History: Reports: Other (See Below) Other Neuro History: ideopathic neuropathy Psychiatric History: Reports: Anxiety - Past Surgical History HEENT Surgical History: Reports: Tonsillectomy GI Surgical History: Reports: Appendectomy, Colonoscopy, Other (See Below) Other GI Surgeries/Procedures: Exlap Female Surgical History: Reports: Other (See Below) Social & Family History - Family History Family Medical History: Noncontributory - Caffeine Use Caffeine Use: Reports: Coffee - Living Situation & Occupation Living situation: Reports: , with Spouse Occupation: Employed ED ROS GENERAL - Review of Systems Review Of Systems: Comprehensive ROS is negative, except as noted in HPI. ED EXAM, GENERAL - Physical Exam Exam: See Below Exam Limited By: No Limitations General Appearance: Alert, WD/WN, No Apparent Distress Eye Exam: Bilateral Eye: EOMI, Normal Inspection, PERRL Ears: Normal External Exam, Normal Canal, Hearing Grossly Normal, Normal TMs Nose: Normal Inspection, Normal Mucosa, No Blood Throat/Mouth: Normal Lips, Normal Oropharynx, Normal Voice, No Airway Compromise , Other (dry oral mucosa) Head: Atraumatic, Normocephalic Neck: Normal Inspection, Supple, Full Range of Motion, Other (soft tissue paraspinal tenderness). No: Lymphadenopathy (L), Lymphadenopathy (R) Respiratory/Chest: No Respiratory Distress, Lungs Clear, Normal Breath Sounds, No Accessory Muscle Use, Chest Non-Tender Cardiovascular: Normal Peripheral Pulses, Regular Rate, Rhythm, No Edema, No Murmur, Tachycardia GI/Abdominal: Normal Bowel Sounds, Soft, No Organomegaly, No Distention, No Mass , Tender (generalized). No: Guarding, Rigid, Rebound (Female) Exam: Deferred Rectal (Female) Exam: Deferred Back Exam: Decreased Range of Motion, Paraspinal Tenderness (generalized). No: CVA Tenderness (L), CVA Tenderness (R), Vertebral Tenderness Extremities: No Pedal Edema, Normal Capillary Refill, Arm Pain, Leg Pain, Limited Range of Motion (due to pain). No: Joint Swelling, Alex's Sign, Increased Warmth, Mottled, Pallor, Redness Neurological: Alert, Oriented, CN II-XII Intact, Normal Cognition, No Motor/ Sensory Deficits Psychiatric: Anxious, Tearful Skin Exam: Warm, Dry, Intact, Normal Color, No Rash Course - Vital Signs Last Recorded V/S: Last Vital Signs Temp 98.7 F 06/19/19 17:55 Pulse 100 06/19/19 17:55 Resp 13 06/19/19 17:55 BP 111/73 06/19/19 17:55 Pulse Ox 96 06/19/19 17:55 - Orders/Labs/Meds Orders: Active Orders 24 hr Category Date Time Status Peripheral IV Care [RC] . DIRECTED Care 06/19/19 17:32 Active CULTURE BLOOD [BC] Stat Lab 06/19/19 17:43 Received CULTURE BLOOD [] Stat Lab 06/19/19 17:48 Received CULTURE STREP A CONFIRMATION [] Stat Lab 06/19/19 20:04 Results STREP SCRN A RAPID W CULT CONF [] Stat Lab 06/19/19 20:04 Results Blood Culture x2 Reflex Set [OM.PC] Stat Ot 06/19/19 17:31 Ordered Peripheral IV Insertion Adult [OM.PC] Stat Ot 06/19/19 17:31 Ordered Labs: Laboratory Tests 06/19/19 06/19/19 06/19/19 Range/Units 17:43 17:43 17:43 WBC 5.9 (5.0-10.0) 10^3/uL RBC 4.85 (4.2-5.4) 10^6/uL Hgb 13.6 (12.0-16.0) g/dL Hct 40.6 (37.0-47.0) % MCV 83.7 (80-100) fL MCH 28.0 (27.0-34.0) pg MCHC 33.5 (33.0-35.0) g/dL Plt Count 205 (150-450) 10^3/uL Neut % (Auto) 73.6 (42.2-75.2) % Lymph % (Auto) 14.5 L (20.5-50.1) % [place] % (Auto) 10.6 H (2-8) % Eos % (Auto) 1.0 (1.0-3.0) % Baso % (Auto) 0.3 (0.0-1.0) % Sodium 136 (135-145) mmol/L Potassium 3.3 L (3.6-5.0) mmol/L Chloride 104 (101-111) mmol/L Carbon Dioxide 22.0 (21.0-31.0) mmol/L Anion Gap 13.3 BUN 13 (7-18) mg/dL Creatinine 0.9 (0.6-1.3) mg/dL Est Cr Clr Drug Dosing 70.98 mL/min Estimated GFR (MDRD) > 60 BUN/Creatinine Ratio 14.44 Glucose 89 (74-105) mg/dL Lactic Acid 1.1 (0.5-2.2) mmol/L Calcium 8.6 (8.4-10.2) mg/dl Magnesium 1.8 (1.8-2.5) mg/dL Total Bilirubin 1.0 (0.2-1.0) mg/dL AST 22 (10-42) IU/L ALT 16 (10-60) IU/L Alkaline Phosphatase 73 (42-121) IU/L Creatine Kinase 78 (26-174) IU/L C-Reactive Protein (0.0-1.3) mg/dL Total Protein 7.5 (6.7-8.2) g/dl Albumin 3.9 (3.2-5.5) g/dl Globulin 3.6 Albumin/Globulin Ratio 1.08 Lipase 27 (22-51) U/L TSH, Ultra Sensitive (0.45-5.33) uIu/mL Urine Color (YELLOW) Urine Appearance (CLEAR) Urine pH (5.0-9.0) Ur Specific Burr (1.005-1.030) Urine Protein (NEGATIVE) Urine Glucose (UA) (NEGATIVE) Urine Ketones (NEGATIVE) Urine Occult Blood (NEGATIVE) Urine Nitrite (NEGATIVE) Urine Bilirubin (NEGATIVE) Urine Urobilinogen (0.2-1.0) mg/dL Ur Leukocyte Esterase (NEGATIVE) Urine RBC /HPF Urine WBC (0-5/HPF) /HPF Ur Epithelial Cells (NOT SEEN) /HPF Amorphous Sediment (NOT SEEN) /HPF Urine Bacteria (0-FEW/HPF) /HPF Urine Mucus (NOT SEEN) /LPF Urine HCG, Qual Urine Opiates Screen (NEGATIVE) Ur Oxycodone Screen (NEGATIVE) Urine Methadone Screen (NEGATIVE) Ur Barbiturates Screen (NEGATIVE) U Tricyclic Antidepress (NEGATIVE) Ur Phencyclidine Scrn (NEGATIVE) Ur Amphetamine Screen (NEGATIVE) U Methamphetamines Scrn (NEGATIVE) Urine MDMA Screen (NEGATIVE) U Benzodiazepines Scrn (NEGATIVE) Urine Cocaine Screen (NEGATIVE) U Marijuana (THC) Screen (NEGATIVE) 06/19/19 06/19/19 06/19/19 Range/Units 17:43 19:09 19:09 WBC (5.0-10.0) 10^3/uL RBC (4.2-5.4) 10^6/uL Hgb (12.0-16.0) g/dL Hct (37.0-47.0) % MCV (80-100) fL MCH (27.0-34.0) pg MCHC (33.0-35.0) g/dL Plt Count (150-450) 10^3/uL Neut % (Auto) (42.2-75.2) % Lymph % (Auto) (20.5-50.1) % [place] % (Auto) (2-8) % Eos % (Auto) (1.0-3.0) % Baso % (Auto) (0.0-1.0) % Sodium (135-145) mmol/L Potassium (3.6-5.0) mmol/L Chloride (101-111) mmol/L Carbon Dioxide (21.0-31.0) mmol/L Anion Gap BUN (7-18) mg/dL Creatinine (0.6-1.3) mg/dL Est Cr Clr Drug Dosing mL/min Estimated GFR (MDRD) BUN/Creatinine Ratio Glucose (74-105) mg/dL Lactic Acid (0.5-2.2) mmol/L Calcium (8.4-10.2) mg/dl Magnesium (1.8-2.5) mg/dL Total Bilirubin (0.2-1.0) mg/dL AST (10-42) IU/L ALT (10-60) IU/L Alkaline Phosphatase (42-121) IU/L Creatine Kinase (26-174) IU/L C-Reactive Protein 2.9 H (0.0-1.3) mg/dL Total Protein (6.7-8.2) g/dl Albumin (3.2-5.5) g/dl Globulin Albumin/Globulin Ratio Lipase (22-51) U/L TSH, Ultra Sensitive 0.87 (0.45-5.33) uIu/mL Urine Color Dark yellow (YELLOW) Urine Appearance Turbid (CLEAR) Urine pH 5.5 (5.0-9.0) Ur Specific Burr >= 1.030 (1.005-1.030) Urine Protein Trace H (NEGATIVE) Urine Glucose (UA) Negative (NEGATIVE) Urine Ketones Trace H (NEGATIVE) Urine Occult Blood Large H (NEGATIVE) Urine Nitrite Negative (NEGATIVE) Urine Bilirubin Negative (NEGATIVE) Urine Urobilinogen 0.2 (0.2-1.0) mg/dL Ur Leukocyte Esterase Negative (NEGATIVE) Urine RBC >100 H /HPF Urine WBC 0-5 (0-5/HPF) /HPF Ur Epithelial Cells Few (NOT SEEN) /HPF Amorphous Sediment Occasional (NOT SEEN) /HPF Urine Bacteria Few (0-FEW/HPF) /HPF Urine Mucus Few H (NOT SEEN) /LPF Urine HCG, Qual Negative Urine Opiates Screen (NEGATIVE) Ur Oxycodone Screen (NEGATIVE) Urine Methadone Screen (NEGATIVE) Ur Barbiturates Screen (NEGATIVE) U Tricyclic Antidepress (NEGATIVE) Ur Phencyclidine Scrn (NEGATIVE) Ur Amphetamine Screen (NEGATIVE) U Methamphetamines Scrn (NEGATIVE) Urine MDMA Screen (NEGATIVE) U Benzodiazepines Scrn (NEGATIVE) Urine Cocaine Screen (NEGATIVE) U Marijuana (THC) Screen (NEGATIVE) 06/19/19 Range/Units 19:09 WBC (5.0-10.0) 10^3/uL RBC (4.2-5.4) 10^6/uL Hgb (12.0-16.0) g/dL Hct (37.0-47.0) % MCV (80-100) fL MCH (27.0-34.0) pg MCHC (33.0-35.0) g/dL Plt Count (150-450) 10^3/uL Neut % (Auto) (42.2-75.2) % Lymph % (Auto) (20.5-50.1) % [place] % (Auto) (2-8) % Eos % (Auto) (1.0-3.0) % Baso % (Auto) (0.0-1.0) % Sodium (135-145) mmol/L Potassium (3.6-5.0) mmol/L Chloride (101-111) mmol/L Carbon Dioxide (21.0-31.0) mmol/L Anion Gap BUN (7-18) mg/dL Creatinine (0.6-1.3) mg/dL Est Cr Clr Drug Dosing mL/min Estimated GFR (MDRD) BUN/Creatinine Ratio Glucose (74-105) mg/dL Lactic Acid (0.5-2.2) mmol/L Calcium (8.4-10.2) mg/dl Magnesium (1.8-2.5) mg/dL Total Bilirubin (0.2-1.0) mg/dL AST (10-42) IU/L ALT (10-60) IU/L Alkaline Phosphatase (42-121) IU/L Creatine Kinase (26-174) IU/L C-Reactive Protein (0.0-1.3) mg/dL Total Protein (6.7-8.2) g/dl Albumin (3.2-5.5) g/dl Globulin Albumin/Globulin Ratio Lipase (22-51) U/L TSH, Ultra Sensitive (0.45-5.33) uIu/mL Urine Color (YELLOW) Urine Appearance (CLEAR) Urine pH (5.0-9.0) Ur Specific Burr (1.005-1.030) Urine Protein (NEGATIVE) Urine Glucose (UA) (NEGATIVE) Urine Ketones (NEGATIVE) Urine Occult Blood (NEGATIVE) Urine Nitrite (NEGATIVE) Urine Bilirubin (NEGATIVE) Urine Urobilinogen (0.2-1.0) mg/dL Ur Leukocyte Esterase (NEGATIVE) Urine RBC /HPF Urine WBC (0-5/HPF) /HPF Ur Epithelial Cells (NOT SEEN) /HPF Amorphous Sediment (NOT SEEN) /HPF Urine Bacteria (0-FEW/HPF) /HPF Urine Mucus (NOT SEEN) /LPF Urine HCG, Qual Urine Opiates Screen Positive H (NEGATIVE) Ur Oxycodone Screen Negative (NEGATIVE) Urine Methadone Screen Negative (NEGATIVE) Ur Barbiturates Screen Negative (NEGATIVE) U Tricyclic Antidepress Negative (NEGATIVE) Ur Phencyclidine Scrn Negative (NEGATIVE) Ur Amphetamine Screen Negative (NEGATIVE) U Methamphetamines Scrn Negative (NEGATIVE) Urine MDMA Screen Negative (NEGATIVE) U Benzodiazepines Scrn Negative (NEGATIVE) Urine Cocaine Screen Negative (NEGATIVE) U Marijuana (THC) Screen Negative (NEGATIVE) Meds: Medications Discontinued Medications Generic Name Dose Route Start Last Admin Trade Name Freq PRN Reason Stop Dose Admin Hydromorphone HCl 1 mg 06/19/19 17:33 06/19/19 17:49 Dilaudid IVPUSH 06/19/19 17:34 1 mg ONETIME ONE Administration Hydromorphone HCl 1 mg 06/19/19 18:39 06/19/19 19:50 Dilaudid IVPUSH 06/19/19 18:40 Not Given ONETIME ONE Hydromorphone HCl 0.5 mg 06/19/19 19:31 06/19/19 19:34 Dilaudid IVPUSH 06/19/19 19:32 0.5 mg ONETIME ONE Administration Hydromorphone HCl 0.5 mg 06/19/19 21:56 06/19/19 22:05 Dilaudid IVPUSH 06/19/19 21:57 0.5 mg ONETIME ONE Administration Sodium Chloride 1,000 mls @ 999 mls/hr 06/19/19 17:32 06/19/19 17:43 Normal Saline IV 06/19/19 18:32 999 mls/hr .BOLUS ONE Administration Sodium Chloride 1,000 mls @ 100 mls/hr 06/19/19 19:13 06/19/19 22:09 Normal Saline IV 06/20/19 05:12 100 mls/hr .BOLUS ONE Administration Ketorolac Tromethamine 30 mg 06/19/19 17:32 06/19/19 17:52 Toradol IVPUSH 06/19/19 17:33 30 mg ONETIME ONE Administration Methylprednisolone Sodium Succinate 125 mg 06/19/19 18:39 06/19/19 19:01 Solu-Medrol IVPUSH 06/19/19 18:40 125 mg ONETIME ONE Administration Ondansetron HCl 4 mg 06/19/19 17:32 06/19/19 17:47 Zofran IV 06/19/19 17:33 4 mg ONETIME ONE Administration Oxycodone/Acetaminophen Confirm 06/19/19 22:06 06/19/19 22:11 Percocet 325-5 Mg Administered 06/19/19 22:07 Not Given Dose 2 tab .ROUTE .STK-MED ONE Sodium Chloride 10 ml 06/19/19 17:31 06/19/19 17:43 Saline Flush FLUSH 10 ml ASDIRECTED PRN Administration Keep Vein Open - Re-Assessments/Exams Free Text/Narrative Re-Assessment/Exam: 06/19/19 19:08 Care of pt transferred to Ellen SHEIKH at shift change. Departure - Departure Disposition: Home, Self-Care 01 Clinical Impression: Myalgia - Discharge Information Referrals: Aleyda Mcnamara MD [Primary Care Provider] - Forms: ED Department Discharge Additional Instructions: prednsione taper alternatetyleol 650mg and ibuprofen 600mg every 4 hours as needed for mild pain Percocet 5/325 one every 6 hours as needed for severe pain #10 clinic follow up Recheck Sunday Increase fluid intake light activity Sepsis Event Note - Focused Exam Vital Signs: Vital Signs Temp Pulse Resp BP Pulse Ox 06/19/19 17:55 98.7 F 100 13 111/73 96 Date Exam was Performed: 06/19/19 Time Exam was Performed: 19:08 <Ellen Bill - Last Filed: 06/20/19 05:31> Course - Re-Assessments/Exams Free Text/Narrative Re-Assessment/Exam: Moderate improvement in pain, Not complete relief but tolerable. Departure - Departure Time of Disposition: 22:00 Condition: Good - Discharge Information *PRESCRIPTION DRUG MONITORING PROGRAM REVIEWED*: No *COPY OF PRESCRIPTION DRUG MONITORING REPORT IN PATIENT AMINTA: No Sepsis Event Note - Focused Exam Date Exam was Performed: 06/20/19 Time Exam was Performed: 05:29 I have read and agree with the documentation that has been completed regarding this visit. By signing this record, I attest that the documentation was completed in my physical presence and is an accurate record of the encounter.
[2019-06-19] MEDS: Sodium Chloride 0.9% 1,000 ML IV ONE ×2 (19:18→22:09)
[2019-06-19] MEDS ORDERED: Acetaminophen/oxyCODONE 325-5 MG Tab ONE (22:06)
== END 2019-06-19 22:13 | disposition home or self-care (01) ==
LOC: DL.ED 17:06
DX: M79.10 Myalgia, unspecified site (principal); Z98.890 Other specified postprocedural states; Z90.49 Acquired absence of other specified parts of digestive tract
CPT/HCPCS: 36415; 80053; 80305; 81001; 81025; 82550; 83605; 83690; 83735; 84443; 85025; 86140; 87040; 87081; 87430; 96361; 96374; 96375; 96376; 99284; A9270; J1170; J1885; J2405; J2930; J7030

== ENCOUNTER 2019-06-28 20:02 | Emergency (ER) | payer BC ==
[2019-06-28] MEDS ORDERED: Acetaminophen/HYDROcodone 325-10 MG Tab PO ONE (20:03)
[2019-06-28 21:03] VITALS: BP 116/71; PULSE 90
[2019-06-28] MEDS ORDERED: HYDROmorphone 1 MG/ML Syringe IVPUSH ONE ×2 (21:04→22:41)
[2019-06-28] MEDS ORDERED: Ondansetron 4 MG/2 ML SDV IVPUSH ONE (21:05)
[2019-06-28] MEDS ORDERED: Sodium Chloride 0.9% 10 ML Syringe FLUSH PRN (21:05)
[2019-06-28] MEDS ORDERED: Iopamidol 612 MG/ML 100 ML Bottle IVPUSH ONE (21:43)
[2019-06-28 21:44] LABS: ANION GAP 13.4; CHLORIDE,CL 104 mmol/L (101-111); SODIUM,NA 139 mmol/L (135-145)
--- NOTE | 2019-06-28 21:49 | EDM.PDOC ---
ED HPI GENERAL MEDICAL PROBLEM - General Chief Complaint: General Stated Complaint: STOMACH, CHEST, NECK, HEAD PAIN Time Seen by Provider: 06/28/19 21:44 Source of Information: Reports: Patient History Limitations: Reports: No Limitations - History of Present Illness INITIAL COMMENTS - FREE TEXT/NARRATIVE: had abd mesh placed post large ovarian cyste removal 2004. been ok for a while till last year started having low abd pain and general body aches. been Dx with fibromyalgia then idiopathic neuropathy then other things. tonight's episode got worse than last week when she was here. no appetite and not eating much. been told she's constipated. denies UTI Sx. pain on-off & sharp. Upper Abdominal Pain Score (Numeric/FACES): 10 - Related Data Allergies Allergy/AdvReac Type Severity Reaction Status Date / Time No Known Allergies Allergy Verified 06/28/19 20:58 Home Meds: Home Meds Pregabalin [Lyrica] 150 mg PO DAILY 06/19/19 [History] Pregabalin [Lyrica] 300 mg PO DAILY 06/19/19 [History] valACYclovir [Valtrex] 500 mg PO DAILY 06/28/19 [History] Past Medical History - Past Health History Medical/Surgical History: Denies Medical/Surgical History HEENT History: Reports: Impaired Vision Respiratory History: Reports: Pneumonia, Recurrent Gastrointestinal History: Reports: GERD 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 Musculoskeletal History: Reports: Other (See Below) Other Musculoskeletal History: idiopathic nueropathy. Neurological History: Reports: Other (See Below) Other Neuro History: ideopathic neuropathy Psychiatric History: Reports: Anxiety - Past Surgical History HEENT Surgical History: Reports: Tonsillectomy GI Surgical History: Reports: Appendectomy, Colonoscopy, Other (See Below) Other GI Surgeries/Procedures: Exlap Female Surgical History: Reports: Other (See Below) Social & Family History - Family History Family Medical History: Noncontributory - Caffeine Use Caffeine Use: Reports: Coffee - Living Situation & Occupation Living situation: Reports: , with Spouse Occupation: Employed ED ROS GENERAL - Review of Systems Review Of Systems: Comprehensive ROS is negative, except as noted in HPI. ED EXAM, GENERAL - Physical Exam Exam: See Below Exam Limited By: No Limitations General Appearance: Alert, WD/WN, Anxious, Moderate Distress, Other (upset tearful) Ears: Hearing Grossly Normal Throat/Mouth: Normal Voice, No Airway Compromise Head: Atraumatic Neck: Non-Tender, Full Range of Motion Respiratory/Chest: No Respiratory Distress Cardiovascular: Regular Rate, Rhythm GI/Abdominal: Guarding, Tender, Other (BS hyper). No: Distended, Rigid, Rebound Neurological: Alert, Oriented, Normal Cognition, No Motor/Sensory Deficits Psychiatric: Anxious, Flat Affect, Tearful Skin Exam: Warm, Dry, Normal Color Lymphatic: No Adenopathy Course - Vital Signs Last Recorded V/S: Last Vital Signs Temp 36.6 C 06/28/19 21: Pulse 90 06/28/19 21: Resp 20 06/28/19 21: BP 116/71 06/28/19 21: Pulse Ox 100 06/28/19 21:01 - Orders/Labs/Meds Orders: Active Orders 24 hr Category Date Time Status Sodium Chloride 0.9% [Saline Flush] Med 06/28/19 21:05 Active 10 ml FLUSH ASDIRECTED PRN Saline Lock Insert [OM.PC] Routine Oth 06/28/19 21:05 Ordered Medication Orders Sodium Chloride (Saline Flush) 10 ml FLUSH ASDIRECTED PRN PRN Reason: Keep Vein Open Last Admin: 06/28/19 21:10 Dose: 10 ml Labs: Laboratory Tests 06/28/19 06/28/19 06/28/19 Range/Units 21:00 21:00 21:00 WBC 11.7 H (5.0-10.0) 10^3/uL RBC 4.95 (4.2-5.4) 10^6/uL Hgb 14.0 (12.0-16.0) g/dL Hct 41.9 (37.0-47.0) % MCV 84.6 (80-100) fL MCH 28.3 (27.0-34.0) pg MCHC 33.4 (33.0-35.0) g/dL Plt Count 266 (150-450) 10^3/uL Neut % (Auto) 50.9 (42.2-75.2) % Lymph % (Auto) 37.4 (20.5-50.1) % [place] % (Auto) 10.1 H (2-8) % Eos % (Auto) 1.3 (1.0-3.0) % Baso % (Auto) 0.3 (0.0-1.0) % Sodium 139 (135-145) mmol/L Potassium 3.4 L (3.6-5.0) mmol/L Chloride 104 (101-111) mmol/L Carbon Dioxide 25.0 (21.0-31.0) mmol/L Anion Gap 13.4 BUN 15 (7-18) mg/dL Creatinine 1.0 (0.6-1.3) mg/dL Est Cr Clr Drug Dosing 60.95 mL/min Estimated GFR (MDRD) > 60 BUN/Creatinine Ratio 15.00 Glucose 79 (74-105) mg/dL Lactic Acid 2.0 (0.5-2.0) mmol/L Calcium 9.2 (8.4-10.2) mg/dl Total Bilirubin 0.6 (0.2-1.0) mg/dL AST 21 (10-42) IU/L ALT 19 (10-60) IU/L Alkaline Phosphatase 81 (42-121) IU/L Total Protein 6.9 (6.7-8.2) g/dl Albumin 4.1 (3.2-5.5) g/dl Globulin 2.8 Albumin/Globulin Ratio 1.46 Amylase 51 (28-100) U/L Lipase 36 (22-51) U/L Meds: Medications Generic Name Dose Route Start Last Admin Trade Name Gagandeepq PRN Reason Stop Dose Admin Sodium Chloride 10 ml 06/28/19 21:05 06/28/19 21:10 Saline Flush FLUSH 10 ml ASDIRECTED PRN Administration Keep Vein Open Discontinued Medications Generic Name Dose Route Start Last Admin Trade Name Johnnie PRN Reason Stop Dose Admin Hydromorphone HCl 1 mg 06/28/19 21:04 06/28/19 21:09 Dilaudid IVPUSH 06/28/19 21:05 1 mg ONETIME ONE Administration Hydromorphone HCl 1 mg 06/28/19 22:41 06/28/19 22:46 Dilaudid IVPUSH 06/28/19 22:42 1 mg ONETIME ONE Administration Iopamidol 100 ml 06/28/19 21:43 06/28/19 22:01 Isovue-300 (61%) IVPUSH 06/28/19 21:44 100 ml ONETIME ONE Administration Ondansetron HCl 4 mg 06/28/19 21:05 06/28/19 21:09 Zofran IVPUSH 06/28/19 21:06 4 mg ONETIME ONE Administration - Re-Assessments/Exams Free Text/Narrative Re-Assessment/Exam: 06/28/19 23:16 results discussed with pt & mother. Departure - Departure Time of Disposition: 23:17 Disposition: Home, Self-Care 01 Condition: Good Clinical Impression: Postoperative generalized abdominal pain Abdominal pain Qualifiers: Abdominal location: generalized Qualified Code(s): R10.84 - Generalized abdominal pain - Discharge Information Instructions: Constipation, Adult, [id number] Forms: ED Department Discharge Additional Instructions: 1) avoid solid foods next 48 hours 2) see family doctor for surgical consult rx given; bentyl 10mg bid for abd pain x 12 vicodin 5/325mg tid prn pain x 12 Sepsis Event Note - Evaluation Sepsis Screening Result: No Definite Risk - Focused Exam Vital Signs: Vital Signs Temp Pulse Resp BP Pulse Ox 06/28/19 21:01 36.6 C 90 20 116/71 100 Date Exam was Performed: 06/28/19 Time Exam was Performed: 23:16 - My Orders Last 24 Hours: My Active Orders 06/28/19 21:05 Sodium Chloride 0.9% [Saline Flush] 10 ml FLUSH ASDIRECTED PRN Saline Lock Insert [OM.PC] Routine - Assessment/Plan Last 24 Hours: My Active Orders 06/28/19 21:05 Sodium Chloride 0.9% [Saline Flush] 10 ml FLUSH ASDIRECTED PRN Saline Lock Insert [OM.PC] Routine
[2019-06-28] MEDS ORDERED: Acetaminophen/HYDROcodone 325-10 MG Tab ONE (23:31)
== END 2019-06-28 23:40 | disposition home or self-care (01) ==
LOC: DL.ED 20:02
DX: G89.18 Other acute postprocedural pain (principal); R10.84 Generalized abdominal pain; Z90.49 Acquired absence of other specified parts of digestive tract; Z98.890 Other specified postprocedural states
CPT/HCPCS: 36415; 74177; 80053; 82150; 83605; 83690; 85025; 96374; 96375; 96376; 99284; A9270; J1170; J2405; Q9967

== ENCOUNTER 2023-01-17 12:47 | Emergency (ER) | payer BC ==
[2023-01-17] MEDS ORDERED: Sodium Chloride 0.9% 10 ML Syringe FLUSH PRN (13:01)
[2023-01-17] MEDS ORDERED: Pantoprazole 40 MG Vial IVPUSH ONE (13:03)
[2023-01-17] MEDS ORDERED: Sodium Chloride 0.9% 1,000 ML IV ONE ×2 (13:03→15:26)
[2023-01-17] MEDS ORDERED: Ondansetron 4 MG/2 ML SDV IV ONE ×2 (13:03→15:26)
[2023-01-17] MEDS ORDERED: Butorphanol 2 MG/ML SDV IVPUSH ONE (13:04)
[2023-01-17] MEDS ORDERED: Pantoprazole 40 MG in Sodium Chloride 0.9% 100 ML IV SCH (13:15)
[2023-01-17 13:21] LABS: BASOPHILS PERCENT AUTO 0.5 % (0.0-1.0); EOSINOPHILS PERCENT AUTO 2.8 % (1.0-3.0); HEMATOCRIT 40.4 % (37.0-47.0); HEMOGLOBIN 13.3 g/dL (12.0-16.0); LYMPHOCYTES PERCENT AUTO 34.9 % (20.5-50.1); MEAN CORPUSCULAR HEMOGLOBIN 30.1 pg (27.0-34.0); MEAN CORPUSCULAR HGB CONC 32.9 g/dL (33.0-35.0); MEAN CORPUSCULAR VOLUME 91.4 fL (80-100); MONOCYTES PERCENT AUTO 9.7 % (2-8); NEUTROPHILS PERCENT AUTO 52.1 % (42.2-75.2); PLATELET COUNT,PLT 224 10^3/uL (150-450); RED BLOOD CELL COUNT 4.42 10^6/uL (4.2-5.4); WHITE BLOOD CELL COUNT,WBC 6.4 10^3/uL (5.0-10.0)
[2023-01-17 13:38] LABS: INR 0.9 (0.9-1.2); PROTHROMBIN TIME 9.3 SEC (9.0-12.0); PTT,PARTIAL THROMBOPLSTIN TIME 26.1 SEC (22.0-34.0)
[2023-01-17 13:49] LABS: A/G RATIO 1.3; ALANINE AMINOTRANSFERASE,ALT 26 U/L (14-59); ALBUMIN 4.2 g/dL (3.4-5.0); ALKALINE PHOSPHATASE 89 U/L (46-116); ANION GAP 15.1 mEq/L (7-13); ASPARTATE AMNIOTRANSFERASE,AST 19 U/L (15-37); BILIRUBIN TOTAL 0.4 mg/dL (0.2-1.0); BLOOD UREA NITROGEN,BUN 12 mg/dL (7-18); BUN/CREATININE RATIO 12.8 (No establ ref range); CALCIUM 9.4 mg/dL (8.5-10.1); CARBON DIOXIDE,CO2 27 mmol/L (21-32); CHLORIDE,CL 104 mmol/L (98-107); CREATININE 0.94 mg/dL (0.55-1.02); GLUCOSE RANDOM 90 mg/dL (70-99); LIPASE 100 U/L (73-393); POTASSIUM,K 4.1 mmol/L (3.5-5.1); PROTEIN TOTAL,TP 7.5 g/dL (6.4-8.2); SODIUM,NA 142 mmol/L (136-145)
[2023-01-17 13:50] LABS: ESTIMATED GFR 81 mL/min (>=60)
[2023-01-17 14:34] LABS: APPEARANCE,URINE CLEAR (CLEAR); BILIRUBIN,URINE NEGATIVE (NEGATIVE); COLOR,URINE YELLOW (YELLOW); GLUCOSE,URINE NEGATIVE (NEGATIVE); KETONES,URINE NEGATIVE (NEGATIVE); LEUKOCYTE ESTERASE,URINE NEGATIVE (NEGATIVE); NITRITE,URINE NEGATIVE (NEGATIVE); OCCULT BLOOD,URINE NEGATIVE (NEGATIVE); PROTEIN,URINE NEGATIVE (NEGATIVE); UROBILINOGEN,URINE 0.2 mg/dL (0.2-1.0)
[2023-01-17] MEDS ORDERED: Iopamidol 612 MG/ML 100 ML Bottle IVPUSH ONE (15:26)
[2023-01-17] MEDS ORDERED: HYDROmorphone 1 MG/ML Syringe IVPUSH ONE (15:26)
[2023-01-17 15:43] LABS: HEMATOCRIT 38.5 % (37.0-47.0); HEMOGLOBIN 12.5 g/dL (12.0-16.0)
[2023-01-17 18:06] VITALS: BP 147/64; PULSE 76
== END 2023-01-17 15:40 | disposition home or self-care (01) ==
LOC: DL.ED 12:47
DX: G43.909 Migraine, unspecified, not intractable, without status migrainosus (principal); M54.2 Cervicalgia; K29.01 Acute gastritis with bleeding; N83.201 Unspecified ovarian cyst, right side; Z79.82 Long term (current) use of aspirin
CPT/HCPCS: 36415; 74177; 80053; 81003; 81025; 83605; 83690; 84145; 85014; 85018; 85025; 85610; 85730; 96365; 96366; 96375; 96376; 99284; C9113; J0595; J1170; J2405; J3490; J7030; Q9967

== ENCOUNTER 2023-02-02 06:03 | Day surgery (SDC) | payer BC ==
[~2023-02-02 06:03] MED LIST: Dextrose 5%-0.45% NaCl 1,000 ML IV SCH
[2023-02-02] MEDS ORDERED: fentaNYL 100 MCG/2 ML SDV ONE (06:11)
[2023-02-02] MEDS ORDERED: fentaNYL 100 MCG/2 ML SDV IV ONE ×3 (06:11→07:15)
[2023-02-02] MEDS ORDERED: Midazolam 1 MG/ML 2 ML SDV IV ONE ×3 (06:11→07:16)
[2023-02-02] MEDS ORDERED: Midazolam 1 MG/ML 2 ML SDV ONE (06:11)
[2023-02-02 08:36] VITALS: BP 95/56; PULSE 69
== END 2023-02-02 09:05 | disposition home or self-care (01) ==
LOC: DL.ENDO 06:03
PROVIDERS: ATTEND Internal Medicine Gastroenterology
DX: K29.50 Unspecified chronic gastritis without bleeding (principal); K63.89 Other specified diseases of intestine; E66.09 Other obesity due to excess calories; Z68.27 Body mass index [BMI] 27.0-27.9, adult; Z98.890 Other specified postprocedural states; Z90.49 Acquired absence of other specified parts of digestive tract; Z79.899 Other long term (current) drug therapy
CPT/HCPCS: 43239; 81025; 87077; J2250; J3010; J7042

== ENCOUNTER 2025-05-11 08:03 | Emergency (ER) | payer BC ==
[2025-05-11 08:30] VITALS: BP 122/77; PULSE 99
[2025-05-11] MEDS: Ketorolac 30 MG/ML SDV IM ONE (08:48)
[2025-05-11] MEDS: Orphenadrine 60 MG/2 ML Inj IM ONE (08:48)
== END 2025-05-11 09:17 | disposition home or self-care (01) ==
LOC: DL.ED 08:03
DX: M43.6 Torticollis (principal); K21.9 Gastro-esophageal reflux disease without esophagitis; Z86.16 Personal history of COVID-19; Z79.82 Long term (current) use of aspirin; Z79.899 Other long term (current) drug therapy; Z90.89 Acquired absence of other organs; Z90.49 Acquired absence of other specified parts of digestive tract
CPT/HCPCS: 64450; 96372; 99283; A9270; J1885; J2003; J2360